=== PATIENT | female | born 1985 | race Two or more races ===

== ENCOUNTER 2023-08-27 12:38 | Inpatient (IN) | payer OTHER ==
[2023-08-27] VITALS (10 sets, daily range): BP systolic 131–185; BP diastolic 74–97; PULSE 74–108; RESP 13–19; TEMP 97.4–98.6; O2SAT 100
[~2023-08-27] VITALS: Ht 157.5 cm; Wt 53.6 kg
[~2023-08-27 12:38] MED LIST: CEPH-558 PO; DOCU-119 PO; FERR-82 PO; FLUO-177 PO; FLUO10CA24 PO; LEVE500T20 PO; LEVE500T8 PO
[2023-08-27] MEDS ORDERED: SODIUM CHLORIDE 0.9% 1,000 ML IV ONE (13:00)
[2023-08-27 13:18] LABS: BASOPHILS % (AUTO) 1.1 % (0.0-2.0); EOSINOPHILS % (AUTO) 2.1 % (1.0-6.0); HEMATOCRIT 22.6 % (36-46); LYMPHOCYTES # (AUTO) 1.7 K/uL (1.0-4.8); LYMPHOCYTES % (AUTO) 27.7 % (22.0-44.0); MEAN CORPUSCULAR HEMOGLOBIN 19.3 pg (26.0-34.0); MEAN CORPUSCULAR HGB CONC 30.4 G/dL (31.0-37.0); MEAN CORPUSCULAR VOLUME 63 fL (80-100); MONOCYTES # (AUTO) 0.4 K/uL (0.1-1.0); MONOCYTES % (AUTO) 6.7 % (2.0-9.0); NEUTROPHILS # (AUTO) 3.7 K/uL (1.8-7.7); NEUTROPHILS % (AUTO) 62.4 % (40.0-70.0); PLATELET COUNT (AUTO) 291 K/uL (150-450); RED BLOOD CELL COUNT(AUTO) 3.56 MIL/uL (4.00-5.20)
[2023-08-27 13:24] LABS: HEMOGLOBIN 6.9 g/dL (12.0-16.0)
[2023-08-27 13:25] LABS: ANION GAP 10 mmol/L (8-16); CARBON DIOXIDE 24 mmol/L (22-29); CHLORIDE 101 mmol/L (98-107); CREATININE 0.88 mg/dL (0.60-1.30); GLOMERULAR FILTR. RATE CALC > 60 mL/min (>60); GLUCOSE,RANDOM 109 mg/dL (70-110); POTASSIUM 3.3 mmol/L (3.5-5.1); SODIUM SERUM 135 mmol/L (136-145); UREA NITROGEN, BLOOD 22 mg/dL (7-18)
[2023-08-27 13:29] LABS: COVID AG,FIA SOURCE NASAL SWAB
[2023-08-27 13:33] LABS: TROPONIN I-HIGH SENSITIVITY 4 ng/L (<51)
[2023-08-27 13:35] LABS: ALCOHOL, BLOOD (SERUM) < 3 mg/dL (0-10)
[2023-08-27 13:38] LABS: B-TYPE NATRIURETIC PEPTIDE 57 pg/mL (0-100)
[2023-08-27 13:44] LABS: PROTHROMBIN TIME 10.3 SEC (9.4-11.6)
[2023-08-27 13:51] LABS: ALANINE AMINOTRANSFERASE 23 U/L (12-78); ALBUMIN 3.4 g/dL (3.4-5.0); ALKALINE PHOSPHATASE 56 U/L (46-116); ASPARTATE AMINOTRANSFERASE 17 U/L (15-37); BILIRUBIN,TOTAL 0.3 mg/dL (0.1-1.0); CREATINE KINASE, TOTAL ONLY 110 U/L (26-192); TOTAL PROTEIN, SERUM 7.4 g/dL (6.4-8.2)
[2023-08-27 13:56] LABS: SARS-COV2 (COVID) ANTIGEN,FIA Negative (Negative)
[2023-08-27] MEDS ORDERED: 0.9% SODIUM CHLORIDE 10 ML SYRINGE IVP PRN (14:00)
[2023-08-27] MEDS ORDERED: ONDANSETRON HCL 4 MG/2 ML VIAL IVP PRN ×2 (14:00→15:30)
[2023-08-27] MEDS ORDERED: ACETAMINOPHEN 325 MG TABLET PO PRN ×2 (14:00→15:30)
[2023-08-27 14:31] LABS: APPEARANCE,URINE CLEAR (CLEAR); BILIRUBIN,URINE NEGATIVE (NEGATIVE); COLOR,URINE COLORLESS (YELLOW); GLUCOSE, URINE (UA) NEGATIVE (NEGATIVE); KETONES,URINE NEGATIVE (NEGATIVE); LEUKOCYTE ESTERASE ,URINE NEGATIVE (NEGATIVE); NITRATE,URINE POSITIVE (NEGATIVE); OCCULT BLOOD,URINE NEGATIVE (NEGATIVE); PH,URINE 7.5 (5.0-8.0); PH,URINE DRUG SCREEN 7.5 (5.0-8.0); PROTEIN,URINE NEGATIVE (NEGATIVE); SPECIFIC GRAVITIY, URINE 1.014 (1.003-1.030); UROBILINOGEN,URINE <=1.0 mg/dL (<=1.0)
[2023-08-27 14:37] LABS: AMPHET/METH SCREEN,URINE POSITIVE (NEGATIVE); BARBITURATE SCREEN, URINE NEGATIVE (NEGATIVE); BENZODIAZEPINES SCREEN,URINE NEGATIVE (NEGATIVE); CANNABINOID SCREEN,URINE NEGATIVE (NEGATIVE); COCAINE SCREEN,URINE NEGATIVE (NEGATIVE); METHADONE SCREEN, URINE NEGATIVE (NEGATIVE); OPIATE SCREEN,URINE NEGATIVE (NEGATIVE); PHENCYCLIDINE SCREEN,URINE POSITIVE (NEGATIVE)
[2023-08-27 14:40] LABS: ALCOHOL, URINE DRUG SCREEN NEGATIVE (NEGATIVE)
[2023-08-27 14:42] LABS: RBC,URINE None Seen /HPF (0-2)
[2023-08-27 14:43] LABS: BACTERIA,URINE Many /HPF (None Seen); WBC,URINE 0-2 /HPF (0-5)
[2023-08-27] MEDS ORDERED: BISACODYL 10 MG RECTAL RECTAL SUPPOSITORY PR PRN (15:30)
[2023-08-27] MEDS ORDERED: ZOLPIDEM TARTRATE 5 MG TABLET PO PRN (15:30)
[2023-08-27] MEDS ORDERED: MAGNESIUM HYDROXIDE SUSPENSION 30 ML UDCUP PO PRN (15:30)
[2023-08-27] MEDS ORDERED: MAGNESIUM SULFATE 2 GM, MVI, ADULT NO.1 WITH VIT K 10 ML, THIAMINE 100 MG, FOLIC ACID 1... IV ONE ×5 (15:30)
[2023-08-27 16:33] LABS: FERRITIN 4 ng/mL (8-252)
[2023-08-27] MEDS: HEPARIN SODIUM,PORCINE 5,000 UNITS/ML VIAL SQ SCH (17:51)
[2023-08-27] MEDS: FERROUS SULFATE 325 MG EC TABLET PO SCH (18:05)
[2023-08-27] MEDS: DOCUSATE SODIUM 100 MG CAPSULE PO SCH (21:00)
[2023-08-27] MEDS: LevETIRAcetam 500 MG TABLET PO SCH (22:15)
[2023-08-27 22:17] LABS: BASOPHILS % (AUTO) 0.9 % (0.0-2.0); EOSINOPHILS % (AUTO) 2.7 % (1.0-6.0); HEMATOCRIT 26.7 % (36-46); HEMOGLOBIN 8.2 g/dL (12.0-16.0); LYMPHOCYTES # (AUTO) 1.6 K/uL (1.0-4.8); LYMPHOCYTES % (AUTO) 26.9 % (22.0-44.0); MEAN CORPUSCULAR HEMOGLOBIN 21.1 pg (26.0-34.0); MEAN CORPUSCULAR HGB CONC 30.7 G/dL (31.0-37.0); MEAN CORPUSCULAR VOLUME 69 fL (80-100); MONOCYTES # (AUTO) 0.5 K/uL (0.1-1.0); NEUTROPHILS # (AUTO) 3.6 K/uL (1.8-7.7); NEUTROPHILS % (AUTO) 60.5 % (40.0-70.0); PLATELET COUNT (AUTO) 252 K/uL (150-450); RED BLOOD CELL COUNT(AUTO) 3.89 MIL/uL (4.00-5.20); RED CELL DISTRIBUTION WIDTH 24.1 % (11.5-14.5); WHITE BLOOD COUNT (AUTO) 5.9 K/uL (4.5-11.0)
[2023-08-27 22:30] LABS: RBC MORPHOLOGY COMMENT ABNORMAL RBC MORPH
[2023-08-28 00:10] VITALS: BP 142/62; PULSE 72; RESP 16; TEMP 98.2
[2023-08-28] MEDS: HEPARIN SODIUM,PORCINE 5,000 UNITS/ML VIAL SQ SCH ×5 (00:25→23:25)
[2023-08-28 04:00] VITALS: BP 136/76; PULSE 70; RESP 14; TEMP 98.2
[2023-08-28 05:59] LABS: BASOPHILS % (AUTO) 1.2 % (0.0-2.0); EOSINOPHILS % (AUTO) 1.8 % (1.0-6.0); HEMATOCRIT 28.1 % (36-46); HEMOGLOBIN 8.7 g/dL (12.0-16.0); LYMPHOCYTES # (AUTO) 1.6 K/uL (1.0-4.8); MEAN CORPUSCULAR HEMOGLOBIN 21.2 pg (26.0-34.0); MEAN CORPUSCULAR HGB CONC 30.9 G/dL (31.0-37.0); MEAN CORPUSCULAR VOLUME 69 fL (80-100); MONOCYTES # (AUTO) 0.4 K/uL (0.1-1.0); MONOCYTES % (AUTO) 6.2 % (2.0-9.0); NEUTROPHILS # (AUTO) 4.1 K/uL (1.8-7.7); NEUTROPHILS % (AUTO) 65.8 % (40.0-70.0); PLATELET COUNT (AUTO) 259 K/uL (150-450); RED BLOOD CELL COUNT(AUTO) 4.09 MIL/uL (4.00-5.20); RED CELL DISTRIBUTION WIDTH 23.6 % (11.5-14.5); WHITE BLOOD COUNT (AUTO) 6.3 K/uL (4.5-11.0)
[2023-08-28 06:14] LABS: ALANINE AMINOTRANSFERASE 21 U/L (12-78); ALBUMIN 3.1 g/dL (3.4-5.0); ALKALINE PHOSPHATASE 55 U/L (46-116); ANION GAP 10 mmol/L (8-16); ASPARTATE AMINOTRANSFERASE 18 U/L (15-37); BILIRUBIN,TOTAL 0.4 mg/dL (0.1-1.0); CALCIUM, TOTAL 8.6 mg/dL (8.8-10.5); CARBON DIOXIDE 23 mmol/L (22-29); CHLORIDE 102 mmol/L (98-107); CREATININE 0.64 mg/dL (0.60-1.30); GLOMERULAR FILTR. RATE CALC > 60 mL/min (>60); GLUCOSE,RANDOM 73 mg/dL (70-110); POTASSIUM 3.2 mmol/L (3.5-5.1); SODIUM SERUM 135 mmol/L (136-145); TOTAL PROTEIN, SERUM 7.2 g/dL (6.4-8.2); UREA NITROGEN, BLOOD 10 mg/dL (7-18)
[2023-08-28 06:29] LABS: % IRON SATURATION 43.5 % (22-44)
[2023-08-28 08:03] VITALS: BP 140/89; PULSE 75; RESP 16; TEMP 98.2
[2023-08-28] MEDS: PANTOPRAZOLE SODIUM 40 MG DR TABLET PO SCH (08:05)
[2023-08-28] MEDS: FERROUS SULFATE 325 MG EC TABLET PO SCH ×2 (08:05→17:52)
[2023-08-28] MEDS: LevETIRAcetam 500 MG TABLET PO SCH ×2 (08:05→20:06)
[2023-08-28] MEDS: DOCUSATE SODIUM 100 MG CAPSULE PO SCH ×2 (08:05→20:06)
[2023-08-28] MEDS ORDERED: MAGNESIUM SULFATE 4 GM/WATER 100 ML IV PRN (10:30)
[2023-08-28] MEDS ORDERED: POTASSIUM CHLORIDE 20 MEQ ER TABLET PO PRN (10:30)
[2023-08-28] MEDS ORDERED: MAGNESIUM OXIDE 400 MG TABLET PO PRN (10:30)
[2023-08-28] MEDS ORDERED: MAGNESIUM SULFATE 2 GM/WATER 50 ML IV PRN (10:30)
[2023-08-28] MEDS ORDERED: POTASSIUM CHL 10 MEQ/WATER 50 ML IV PRN (10:30)
[2023-08-28 19:32] VITALS: BP 127/85; PULSE 77; RESP 18; TEMP 99.1
[2023-08-29 04:02] VITALS: BP 128/70; PULSE 71; RESP 18; TEMP 98.7
[2023-08-29 04:32] VITALS: BP 93/60; PULSE 60; RESP 18; TEMP 98.6
[2023-08-29 08:28] VITALS: BP 119/75; PULSE 73; RESP 20; TEMP 98.4
[2023-08-29] MEDS: DOCUSATE SODIUM 100 MG CAPSULE PO SCH ×2 (08:54→19:48)
[2023-08-29] MEDS: PANTOPRAZOLE SODIUM 40 MG DR TABLET PO SCH (08:54)
[2023-08-29] MEDS: FERROUS SULFATE 325 MG EC TABLET PO SCH ×2 (08:54→17:32)
[2023-08-29] MEDS: LevETIRAcetam 500 MG TABLET PO SCH ×2 (08:54→19:48)
[2023-08-29] MEDS: HEPARIN SODIUM,PORCINE 5,000 UNITS/ML VIAL SQ SCH ×3 (08:54→23:06)
[2023-08-29 15:57] VITALS: BP 122/81; PULSE 70; TEMP 98.4
[2023-08-29 19:29] VITALS: BP 117/68; PULSE 81; RESP 18; TEMP 98.7
[2023-08-30 04:19] VITALS: BP 115/71; PULSE 76; RESP 18; TEMP 98.3
[2023-08-30] MEDS: DOCUSATE SODIUM 100 MG CAPSULE PO SCH (08:10)
[2023-08-30] MEDS: FERROUS SULFATE 325 MG EC TABLET PO SCH (08:10)
[2023-08-30] MEDS: PANTOPRAZOLE SODIUM 40 MG DR TABLET PO SCH (08:10)
[2023-08-30] MEDS: LevETIRAcetam 500 MG TABLET PO SCH (08:10)
[2023-08-30] MEDS: HEPARIN SODIUM,PORCINE 5,000 UNITS/ML VIAL SQ SCH (08:11)
[2023-08-30 08:25] VITALS: BP 115/73; PULSE 75; RESP 18; TEMP 98.2
== END 2023-08-30 15:15 | disposition home or self-care (01) | DRG 52 ==
LOC: EMS 12:41 → 5S 15:48 → 6S 08-28 13:30
PROVIDERS: ADMIT Internal Medicine; ATTEND Internal Medicine
PROC: 30233N1 Transfusion of Nonautologous Red Blood Cells into Peripheral Vein, Percutaneous Approach (ICD-10-PCS; principal; 2023-08-27)
DX: G92.9 Unspecified toxic encephalopathy (principal); F29 Unspecified psychosis not due to a substance or known physiological condition; D64.9 Anemia, unspecified; G40.909 Epilepsy, unspecified, not intractable, without status epilepticus; F41.9 Anxiety disorder, unspecified; F15.10 Other stimulant abuse, uncomplicated; Z20.822 Contact with and (suspected) exposure to COVID-19; E87.6 Hypokalemia; Z59.00 Homelessness unspecified; Z88.0 Allergy status to penicillin; Z79.899 Other long term (current) drug therapy
CPT/HCPCS: 51701; 70450; 71045; 72125; 80053; 80307; 81001; 82040; 82271; 82550; 82728; 83540; 83550; 83735; 83880; 84132; 84484; 84703; 85025; 85610; 85730; 86850; 86900; 86901; 86923; 87086; 87186; 93005; 99285; G0480; J1644; J3411; J3475; J3490; J7030; P9016; 36415-L1; 36415-TC

== ENCOUNTER 2024-10-27 16:37 | Emergency (ER) | payer MEDICAID, OTHER ==
[~2024-10-27] VITALS: Ht 154.9 cm; Wt 57.7 kg
[2024-10-27 17:39] VITALS: TEMP 98
[2024-10-27 17:55] LABS: EOSINOPHILS % (AUTO) 1.5 % (1.0-6.0); HEMATOCRIT 29.1 % (36-46); HEMOGLOBIN 8.9 g/dL (12.0-16.0); LYMPHOCYTES # (AUTO) 1.3 K/uL (1.0-4.8); LYMPHOCYTES % (AUTO) 24.9 % (22.0-44.0); MEAN CORPUSCULAR HEMOGLOBIN 20.1 pg (26.0-34.0); MEAN CORPUSCULAR HGB CONC 30.4 G/dL (31.0-37.0); MEAN CORPUSCULAR VOLUME 66 fL (80-100); MONOCYTES # (AUTO) 0.3 K/uL (0.1-1.0); MONOCYTES % (AUTO) 6.1 % (2.0-9.0); NEUTROPHILS # (AUTO) 3.5 K/uL (1.8-7.7); NEUTROPHILS % (AUTO) 66.5 % (40.0-70.0); PLATELET COUNT (AUTO) 415 K/uL (150-450); RED BLOOD CELL COUNT(AUTO) 4.41 MIL/uL (4.00-5.20); RED CELL DISTRIBUTION WIDTH 19.4 % (11.5-14.5); WHITE BLOOD COUNT (AUTO) 5.2 K/uL (4.5-11.0)
[2024-10-27 17:57] LABS: ANION GAP 6 mmol/L (8-16); CALCIUM, TOTAL 8.3 mg/dL (8.8-10.5); CARBON DIOXIDE 29 mmol/L (22-29); CHLORIDE 104 mmol/L (98-107); CREATININE 0.82 mg/dL (0.60-1.30); GLOMERULAR FILTR. RATE CALC > 60 mL/min (>60); GLUCOSE,RANDOM 94 mg/dL (70-110); POTASSIUM 3.7 mmol/L (3.5-5.1); RBC MORPHOLOGY COMMENT ABNORMAL RBC MORPH; SODIUM SERUM 139 mmol/L (136-145); UREA NITROGEN, BLOOD 16 mg/dL (7-18)
[2024-10-27 18:03] LABS: ALANINE AMINOTRANSFERASE 24 U/L (12-78); ALBUMIN 3.4 g/dL (3.4-5.0); ALKALINE PHOSPHATASE 73 U/L (46-116); ASPARTATE AMINOTRANSFERASE 20 U/L (15-37); BILIRUBIN,TOTAL 0.2 mg/dL (0.1-1.0); TOTAL PROTEIN, SERUM 7.8 g/dL (6.4-8.2)
[2024-10-27] MEDS: SODIUM CHLORIDE 0.9% 1,000 ML IV ONE (19:05)
[2024-10-27 19:46] VITALS: BP 150/103; PULSE 83; RESP 15; O2SAT 100
[2024-10-27 19:49] LABS: AMPHET/METH SCREEN,URINE POSITIVE (NEGATIVE); BARBITURATE SCREEN, URINE NEGATIVE (NEGATIVE); BENZODIAZEPINES SCREEN,URINE NEGATIVE (NEGATIVE); CANNABINOID SCREEN,URINE NEGATIVE (NEGATIVE); COCAINE SCREEN,URINE NEGATIVE (NEGATIVE); METHADONE SCREEN, URINE NEGATIVE (NEGATIVE); OPIATE SCREEN,URINE NEGATIVE (NEGATIVE); PHENCYCLIDINE SCREEN,URINE POSITIVE (NEGATIVE)
[2024-10-27 19:58] LABS: ALCOHOL, URINE DRUG SCREEN NEGATIVE (NEGATIVE)
== END 2024-10-27 21:42 | disposition home or self-care (01) ==
LOC: EMS 16:37
DX: F15.10 Other stimulant abuse, uncomplicated (principal); F16.10 Hallucinogen abuse, uncomplicated; F19.11 Other psychoactive substance abuse, in remission; Z59.00 Homelessness unspecified; Z88.0 Allergy status to penicillin
CPT/HCPCS: 99283; 80048; 80076; 85025; 36415; 80307; G0480